=== PATIENT | female | born 1985 | race African-American/Black ===

== ENCOUNTER 2020-10-05 20:45 | Emergency (ER) | payer OTHER ==
[2020-10-05] MEDS ORDERED: Fluorescein Opthalmic Strip ONE (21:11)
[2020-10-05] MEDS ORDERED: Proparacaine 0.5% Opth 15 ML BOT ONE (21:12)
== END 2020-10-05 22:15 | disposition home or self-care (01) ==
LOC: CSHERS 20:45
DX: H57.9 Unspecified disorder of eye and adnexa (principal); M79.671 Pain in right foot

== ENCOUNTER 2022-05-09 19:36 | Emergency (ER) | payer OTHER ==
[2022-05-09] MEDS ORDERED: Acetaminophen 500 MG TAB ONE (20:53)
[2022-05-09] MEDS ORDERED: Ketorolac Tromethamine 30 MG/ML VIAL ONE (20:53)
[2022-05-09 20:58] LABS: #Eosinphils 0.1 10x3/uL (0.0-0.5); #Monocytes 0.6 10x3/uL (0.0-1.1); #Neutrophils 5.2 10x3/uL (1.5-8.4); %Basophils 0.4 % (0.0-2.0); %Eosinophils 1.6 % (0.0-6.0); %Lymphocytes 22.6 % (18.0-47.0); %Monocytes 7.4 % (0.0-10.0); %Neutrophils 67.9 % (40.0-75.0); Hemoglobin 12.6 g/dL (12.0-15.5); Mean Corpuscular HGB CONC 33.8 g/dL (32.0-36.0); Mean Corpuscular Hemoglobin 29.8 pg (27.0-33.0); Mean Corpuscular Volume 88.2 fl (81.6-98.3); Mean Platelet Volume 9.3 fl (7.4-10.4); Platelet Count 375 10x3/uL (150-450); RBC Distribution Width 13.3 % (11.5-14.5); Red Blood Cell (RBC) Count 4.23 10x6/uL (3.90-5.03); White Blood Cell (WBC) Count 7.7 10x3/uL (3.5-10.5)
[2022-05-09 21:20] LABS: ALT (SGPT) 14 U/L (8-55); AST (SGOT) 16 U/L (5-34); Albumin 4.2 g/dL (3.5-5.0); Alkaline Phosphatase 73 U/L (40-110); Anion Gap 11 mmol/L (10-20); BUN (Urea Nitrogen) 10 mg/dL (7.0-18.7); Bilirubin, Total 0.3 mg/dL (0.2-1.2); Calc. Creatinine Clearance 0 mL/min (70-130); Calcium 9.5 mg/dL (7.8-10.44); Carbon Dioxide 25 mmol/L (22-29); Chloride 108 mmol/L (98-107); Estimated GFR 82; Glucose 85 mg/dL (70-105); Potassium 4.5 mmol/L (3.5-5.1); Protein, Total 7.2 g/dL (6.0-8.3); Sodium 139 mmol/L (136-145)
== END 2022-05-09 23:56 | disposition home or self-care (01) ==
LOC: CSHERS 19:36
DX: M79.10 Myalgia, unspecified site (principal); Z87.891 Personal history of nicotine dependence
CPT/HCPCS: 71045; 80053; 84484; 85025; 93005; 96374; J1885